=== PATIENT | female | born 1935 | race Caucasian/White ===

== ENCOUNTER 2016-06-29 10:01 | Day surgery (SDC) | payer OTHER ==
[2016-06-29] MEDS ORDERED: NS 500 ML IV 500 ML IV ONE (10:05)
[2016-06-29] MEDS ORDERED: TETRACAINE 0.5% OPHTH 1 DOSE AFFEYE ONE ×6 (10:07→14:06)
[2016-06-29] MEDS ORDERED: VIGAMOX 0.5% OPHTH 1 DOSE AFFEYE ONE ×5 (10:08→14:18)
[2016-06-29] MEDS ORDERED: PROLENSA OPHTH 1 DOSE AFFEYE ONE (10:19)
[2016-06-29] MEDS ORDERED: ALPHAGAN-P OPHTH 1 DOSE AFFEYE ONE (10:20)
[2016-06-29] MEDS ORDERED: AK-DILATE 2.5% OPHTH 1 DOSE OP ONE ×4 (10:21→10:24)
[2016-06-29] MEDS ORDERED: MYDRIACIL OPHTH 1 DOSE AFFEYE ONE ×4 (10:21→10:24)
[2016-06-29] MEDS ORDERED: CYCLOGYL 1% OPHTH 1 DOSE OP ONE ×4 (10:21→10:24)
[2016-06-29] MEDS ORDERED: VERSED ONE (11:05)
[2016-06-29] MEDS ORDERED: AK-DILATE 10% OPHTH 1 DOSE AFFEYE ONE (13:26)
[2016-06-29] MEDS ORDERED: BETADINE OPHTH SOLN 5% EACHEYE ONE (13:38)
[2016-06-29] MEDS ORDERED: ADRENALINE CHL INJ IJ ONE ×2 (13:46→14:06)
[2016-06-29] MEDS ORDERED: DUOVISC IO ONE ×2 (13:46→14:06)
[2016-06-29] MEDS ORDERED: XYLOCAINE-MPF 1% IJ ONE ×2 (13:46→14:06)
[2016-06-29] MEDS ORDERED: BSS OPHTH (PLAIN) 500 ML with VANCOMYCIN HCL 500 MG VIAL 25 MG, ADRENALINE CHL INJ 1 MG IR ONE ×6 (13:47)
[2016-06-29 14:43] VITALS: BP 146/69
== END 2016-06-29 14:43 | disposition home or self-care (01) ==
LOC: SURG1 10:01
PROVIDERS: ATTEND Ophthalmology
PROC: 08J0XZZ Inspection of Right Eye, External Approach (ICD-10-PCS; principal; 2016-06-29 14:15)
PROC: 08DJ3ZZ Extraction of Right Lens, Percutaneous Approach (ICD-10-PCS; principal; 2016-06-29 14:15)
PROC: 08RJ3JZ Replacement of Right Lens with Synthetic Substitute, Percutaneous Approach (ICD-10-PCS; principal; 2016-06-29 14:15)
DX: H25.11 Age-related nuclear cataract, right eye (principal); H25.011 Cortical age-related cataract, right eye; H52.221 Regular astigmatism, right eye
CPT/HCPCS: 99100; A4217; J0170; J2250; J3370

== ENCOUNTER 2016-08-03 07:02 | Day surgery (SDC) | payer OTHER ==
[2016-08-03] MEDS ORDERED: TETRACAINE 0.5% OPHTH 1 DOSE AFFEYE ONE ×6 (07:30→10:53)
[2016-08-03] MEDS ORDERED: VIGAMOX 0.5% OPHTH 1 DOSE AFFEYE ONE ×5 (07:35→11:08)
[2016-08-03] MEDS ORDERED: PROLENSA OPHTH 1 DOSE AFFEYE ONE (07:46)
[2016-08-03] MEDS ORDERED: ALPHAGAN-P OPHTH 1 DOSE AFFEYE ONE (07:47)
[2016-08-03] MEDS ORDERED: AK-DILATE 2.5% OPHTH 1 DOSE OP ONE ×3 (07:48→07:50)
[2016-08-03] MEDS ORDERED: CYCLOGYL 1% OPHTH 1 DOSE OP ONE ×3 (07:48→07:50)
[2016-08-03] MEDS ORDERED: MYDRIACIL OPHTH 1 DOSE AFFEYE ONE ×3 (07:48→07:50)
[2016-08-03] MEDS ORDERED: NS 500 ML IV 500 ML IV ONE (08:00)
[2016-08-03] MEDS ORDERED: FENTANYL INJ 100 mcg ONE (08:46)
[2016-08-03] MEDS ORDERED: VERSED ONE ×2 (08:46→15:05)
[2016-08-03] MEDS ORDERED: ALCAINE or OPHTHETIC AFFEYE ONE (09:50)
[2016-08-03] MEDS ORDERED: ALCAINE or OPHTHETIC 1 DOSE AFFEYE ONE (10:14)
[2016-08-03] MEDS ORDERED: VERSED IVP ONE (10:14)
[2016-08-03] MEDS ORDERED: AK-DILATE 10% OPHTH 1 DOSE AFFEYE ONE (10:18)
[2016-08-03] MEDS ORDERED: BETADINE OPHTH SOLN 5% EACHEYE ONE (10:32)
[2016-08-03] MEDS ORDERED: BSS OPHTH (PLAIN) 500 ML with VANCOMYCIN HCL 500 MG VIAL 25 MG, ADRENALINE CHL INJ 1 MG IR ONE ×6 (10:40)
[2016-08-03] MEDS ORDERED: XYLOCAINE-MPF 1% IJ ONE ×2 (10:40→10:53)
[2016-08-03] MEDS ORDERED: ADRENALINE CHL INJ IJ ONE ×2 (10:40→10:53)
[2016-08-03] MEDS ORDERED: DUOVISC IO ONE ×2 (10:40→10:53)
[2016-08-03 11:49] VITALS: BP 144/84
== END 2016-08-03 11:35 | disposition home or self-care (01) ==
LOC: SURG1 07:02
PROVIDERS: ATTEND Ophthalmology
PROC: 08DJ3ZZ Extraction of Right Lens, Percutaneous Approach (ICD-10-PCS; principal; 2016-08-03 11:15)
PROC: 08RJ3JZ Replacement of Right Lens with Synthetic Substitute, Percutaneous Approach (ICD-10-PCS; principal; 2016-08-03 11:15)
DX: H25.11 Age-related nuclear cataract, right eye (principal); H25.011 Cortical age-related cataract, right eye; H52.221 Regular astigmatism, right eye
CPT/HCPCS: 99100; A4217; J0170; J2250; J3010; J3370

== ENCOUNTER 2017-01-13 14:23 | Emergency (ER) | payer OTHER ==
[2017-01-13 14:30] VITALS: BMI 26.5
[2017-01-13 16:39] VITALS: BP 127/65
[2017-01-13] MEDS ORDERED: MOTRIN TAB 800 MG PO ONE ×2 (16:41→16:42)
[2017-01-13 17:01] LABS: BILIRUBIN,URINE NEGATIVE (NEGATIVE); BLOOD/HEMOGLOBIN,URINE 1+ (NEGATIVE); GLUCOSE, URINE NEGATIVE (NEGATIVE); KETONES,URINE NEGATIVE (NEGATIVE); LEUKOCYTE ESTERASE ,URINE 2+ (NEGATIVE); NITRITES,URINE POSITIVE (NEGATIVE); PROTEIN,URINE 2+ (NEGATIVE); UROBILINOGEN,URINE NORMAL (NORMAL)
[2017-01-13 17:08] LABS: APPEARANCE,URINE CLOUDY (CLEAR); COLOR,URINE YELLOW (YELLOW)
[2017-01-13 17:09] LABS: BACTERIA,URINE 4+ /HPF (NEGATIVE); RENAL EPITHELIAL CELLS,URINE RARE /HPF (NEGATIVE); SQUAMOUS EPITHELIAL CELL,UR FEW /HPF (NEGATIVE)
--- NOTE | 2017-01-13 17:13 | DR.GENAD ---
HPI - PCP Primary Care Physician: NFD - HPI Comment HPI Comment: GETTING WEAK. NO DYSURIA. SLIGHT CONGESTION PRESENT. - Complaint/Symptoms Chief Complaint Doctors Comments: GENERALIZE WEAKNESS, MALAISE, FEVER AND CHILLS TIMES ONE DAY. Chief Complaint:: "Yesterday I started getting some chills, today it got way worse. I have nausea and stomach and back has been hurting. I just feel sick." - Nurses notes reviewed Nurses Notes Review: Yes - Source History Provided: Patient - Mode of Arrival Mode of Arrival: Ambulatory - Timing Onset of Chief Complaint: 01/12/17 Came on: Suddenly - Duration Duration: Since Onset Duration: Days - Severity Severity: Moderate PMH - PMH Past Medical History: Yes Past Medical History: Coronary Artery Disease, Hypertension Past Surgical History: Yes Surgical History: Angioplasty/Stents, Other Past Surgical History Comment: Bypass - Family History History of Family Medical Conditions: Yes Family Medical History: Diabetes Mellitus, Cancer, Coronary Artery Disease, Hypertension - Social History Does patient currently use any type of tobacco product: No Have you used tobacco products in the last 12 months: No Type of Tobacco Use: None Does any household member use tobacco: No Alcohol Use: None Do you use any recreational Drugs:: No Lives With: Family Lives Where: Home - infectious screening In the last 2 months have you had wt loss of >10#?: NO Have you had fever, night sweats or hemotysis?: No Have you traveled outside the country in the last 6 months?: No ROS - Review of Systems Constitutional: Chills, Fever, Malaise, Weakness, Fatigue, Loss of Appetite Eyes: No Symptoms Reported. negative: Eye Pain, Discharge ENTM: Nose Congestion. negative: Ear Pain, Nose Discharge, Throat Pain Respiratoy: Non-Productive Cough, Short of Breath. negative: Wheezing, Hemoptysis Cardiovascular: No Symptoms Reported Gastrointestinal/Abdominal: Abdominal Pain, Nausea Genitourinary: No Symptoms Reported Neurological: No Symptoms Reported Musculoskeletal: Back Pain Integumentary: No Symptoms Reported Hematologic/Lymphatic: No Symptoms Reported Endocrine: No Symptoms Reported All Other Systems: Reviewed and Negative PE - Vital Signs Vitals: Temperature 99.4 F Pulse Rate [Right] 96 Pulse Rate 95 Respiratory Rate 14 Blood Pressure [Left Arm] 127/65 Blood Pressure 139/64 O2 Sat by Pulse Oximetry 99 - General Limitations: No Limitations General Appearance: Alert - Head Head Exam: Normal Inspection - Eyes Eye exam: Normal Appearance - ENT ENT Exam: Normal External Ear Exam External Ear Exam: Normal External Inspection TM/Canal Exam: Bilateral Normal Nose Exam: Normal Nose Exam Mouth Exam: Normal Inspection Throat Exam: Normal Inspection - Chest Chest Inspection: Symmetric Chest Wall Rise - Respiratory Respiratory Exam: Normal Lung Sounds Bilat Respiratory Exam: Bilateral Rhonchi, Lower Rhonchi - Cardiovascular Cardiovascular Exam: Regular Rate, Normal Rhythm, Normal Heart Sounds - Abdominal Exam Abdominal Exam: Normal Bowel Sounds, Soft. negative: Tenderness - Extremities Extremities Exam: Normal Inspection - Back Back Exam: Normal Inspection - Neurologic Neurological Exam: Alert, Oriented X3 - Psychiatric Psychiatric Exam: Normal Affect, Normal Mood - Skin Skin Exam: Normal Color MDM - Differential Diagnosis Differential Diagnosis: PNEUMONIA, UTI, PYELONEPHRITIS Course - Treatment Treatment: SEE ORDERS. - Education/Counseling Education/Counseling: Patient, Education Educated On: Diagnosis, Needs for Follow Up ROR - Labs Reviewed Laboratory Results Reviewed?: Yes Result Diagrams: 01/13/17 17:14 01/13/17 17:14 Laboratory: 01/13/17 17:32 Blood Blood Culture - Final Escherichia Coli 01/13/17 17:14 Blood Blood Culture - Final Escherichia Coli 01/13/17 16:40 Urine,Clean Catch Urine Culture - Final Escherichia Coli WBC 9.2 X10^3/uL (3.6-10.0) 01/13/17 17:14 RBC 3.74 X10^6/uL (3.5-5.4) 01/13/17 17:14 Hgb 11.9 g/dL (12.0-16.0) L 01/13/17 17:14 Hct 34.2 % (36.0-47.0) L 01/13/17 17:14 MCV 91.4 fL (80.0-100.0) 01/13/17 17:14 MCH 31.8 pg (27.0-34.0) 01/13/17 17:14 MCHC 34.8 g/dL (33.0-35.0) 01/13/17 17:14 RDW 12.7 % (11.6-16.5) 01/13/17 17:14 Plt Count 150 X10^3/uL (150.0-450.0) 01/13/17 17:14 Plt Count Comment Adequate (ADEQUATE) 01/13/17 17:14 MPV 8.9 fL (7.4-11.0) 01/13/17 17:14 Neut % 91.8 % (42.0-75.0) H 01/13/17 17:14 Lymph % 3.9 % (21.0-51.0) L 01/13/17 17:14 [place] % 4.1 % (0.0-13.0) 01/13/17 17:14 Eos % 0.0 % (0.9-2.9) L 01/13/17 17:14 Baso % 0.2 % (0.2-1.0) 01/13/17 17:14 Neut # 8.5 x10^3/uL (2.2-4.8) H 01/13/17 17:14 Lymph # 0.4 X10^3/uL (1.3-2.9) L 01/13/17 17:14 [place] # 0.4 x10^3/uL (0.3-0.8) 01/13/17 17:14 Eos # 0.0 x10^3/uL (0.0-0.2) 01/13/17 17:14 Baso # 0.0 X10^3/uL (0.0-0.1) 01/13/17 17:14 Absolute Nucleated RBC 0.0 /100WBC 01/13/17 17:14 Total Counted 100 01/13/17 17:14 Neutrophils % (Manual) 90 % (39-76) H 01/13/17 17:14 Band Neutrophils % 4 % (0-10) 01/13/17 17:14 Lymphocytes % (Manual) 4 % (13-43) L 01/13/17 17:14 Monocytes % (Manual) 2 % (4-9) L 01/13/17 17:14 Plt Morphology Comment Normal (NORMAL) 01/13/17 17:14 RBC Morphology Abnormal (NORMAL) A 01/13/17 17:14 Hypochromasia Slight A 01/13/17 17:14 Sodium 136 mmol/L (136-145) 01/13/17 17:14 Corrected Sodium 137 mmol/L (136-145) 01/13/17 17:14 Potassium 4.2 mmol/L (3.5-5.1) 01/13/17 17:14 Chloride 105 mmol/L (98-107) 01/13/17 17:14 Carbon Dioxide 20.4 mmol/L (21-32) L 01/13/17 17:14 BUN 22 mg/dL (7-18) H 01/13/17 17:14 Creatinine 1.15 mg/dL (0.55-1.02) H 01/13/17 17:14 Est GFR (MDRD) Af Amer 59 (>60) 01/13/17 17:14 Est GFR (MDRD) Non-Af 48 (>60) L 01/13/17 17:14 Glucose 122 mg/dL (65-99) H 01/13/17 17:14 Calcium 8.9 mg/dL (8.5-10.1) 01/13/17 17:14 Corrected Calcium TNP 01/13/17 17:14 Total Bilirubin 0.60 mg/dL (0.2-1.0) 01/13/17 17:14 AST 19 Units/L (15-37) 01/13/17 17:14 ALT 19 Units/L (12-78) 01/13/17 17:14 Alkaline Phosphatase 78 Units/L (46-116) 01/13/17 17:14 Total Protein 7.2 g/dL (6.4-8.2) 01/13/17 17:14 Albumin 3.5 g/dL (3.4-5.0) 01/13/17 17:14 Globulin 3.7 g/dL (2.5-4.5) 01/13/17 17:14 Albumin/Globulin Ratio 0.9 Ratio (1.1-2.1) L 01/13/17 17:14 Specimen Type Clean catch urine 01/13/17 16:40 Urine Color Yellow (YELLOW) 01/13/17 16:40 Urine Appearance Cloudy (CLEAR) 01/13/17 16:40 Urine pH 6.0 (5.0 - 8.0) 01/13/17 16:40 Ur Specific [place] 1.015 (1.000-1.030) 01/13/17 16:40 Urine Protein 2+ (NEGATIVE) 01/13/17 16:40 Urine Glucose (UA) Negative (NEGATIVE) 01/13/17 16:40 Urine Ketones Negative (NEGATIVE) 01/13/17 16:40 Urine Occult Blood 1+ (NEGATIVE) 01/13/17 16:40 Urine Nitrite Positive (NEGATIVE) 01/13/17 16:40 Urine Bilirubin Negative (NEGATIVE) 01/13/17 16:40 Urine Urobilinogen Normal (NORMAL) 01/13/17 16:40 Ur Leukocyte Esterase 2+ (NEGATIVE) 01/13/17 16:40 Urine RBC 2-3 /HPF (NEGATIVE) 01/13/17 16:40 Urine WBC 6-8 /HPF (NEGATIVE) 01/13/17 16:40 Ur Squamous Epith Cells Few /HPF (NEGATIVE) 01/13/17 16:40 Ur Renal Epithelial Cell Rare /HPF (NEGATIVE) 01/13/17 16:40 Urine Bacteria 4+ /HPF (NEGATIVE) 01/13/17 16:40 Ur Culture Indicated? Yes/culture set up 01/13/17 16:40 - XRAY XRAY Interpreted by: Radiologist XRAY Findings: REPORT DISCUSS WITH PATIENT. - Diagnosis Discharge Problem: UTI (urinary tract infection) Qualifiers: Urinary tract infection type: site unspecified Hematuria presence: with hematuria Qualified Code(s): N39.0 - Urinary tract infection, site not specified - Discharge Plan Disposition: 01 HOME, SELF-CARE Condition: Stable Prescriptions: Levofloxacin [LEVAQUIN TAB 500 MG *] 500 mg PO Q24H #7 tab - Follow ups/Referrals Follow ups/Referrals: NFD,None [Primary Care Provider] - 3 days - Instructions Instructions: Urinary Tract Infection, Adult, [id number] Additional Instructions: RETURN TO ED IF WORSE.
[2017-01-13 17:44] LABS: ALANINE AMINOTRANSFERASE 19 Units/L (12-78); ALBUMIN 3.5 g/dL (3.4-5.0); ALKALINE PHOSPHATASE 78 Units/L (46-116); ASPARTATE AMINO TRANSFERASE 19 Units/L (15-37); BLOOD UREA NITROGEN 22 mg/dL (7-18); CALCIUM 8.9 mg/dL (8.5-10.1); CARBON DIOXIDE 20.4 mmol/L (21-32); CHLORIDE 105 mmol/L (98-107); COR NA(FOR HYPERGLY) 137 mmol/L (136-145); CREATININE 1.15 mg/dL (0.55-1.02); SODIUM 136 mmol/L (136-145); TOTAL PROTEIN 7.2 g/dL (6.4-8.2); eGFR BLACK RACES 59 (>60); eGFR NON BLACK RACES 48 (>60)
[2017-01-13 17:47] LABS: BASOPHILS % (AUTO) 0.2 % (0.2-1.0); HEMATOCRIT 34.2 % (36.0-47.0); HEMOGLOBIN 11.9 g/dL (12.0-16.0); LYMPHOCYTES # (AUTO) 0.4 X10^3/uL (1.3-2.9); LYMPHOCYTES % (AUTO) 3.9 % (21.0-51.0); MEAN CORPUSCULAR HEMOGLOBIN 31.8 pg (27.0-34.0); MEAN CORPUSCULAR HGB CONC 34.8 g/dL (33.0-35.0); MEAN CORPUSCULAR VOLUME 91.4 fL (80.0-100.0); MEAN PLATELET VOLUME 8.9 fL (7.4-11.0); MONOCYTES # (AUTO) 0.4 x10^3/uL (0.3-0.8); MONOCYTES % (AUTO) 4.1 % (0.0-13.0); NEUTROPHILS # (AUTO) 8.5 x10^3/uL (2.2-4.8); NEUTROPHILS % (AUTO) 91.8 % (42.0-75.0); PLATELET COUNT 150 X10^3/uL (150.0-450.0); RED BLOOD COUNT 3.74 X10^6/uL (3.5-5.4); RED CELL DISTRIBUTION WIDTH 12.7 % (11.6-16.5); WHITE BLOOD COUNT 9.2 X10^3/uL (3.6-10.0)
[2017-01-13 18:04] LABS: BAND NEUTROPHILS % 4 % (0-10); HYPOCHROMASIA SLIGHT; PLATELET MORPHOLOGY COMMENT NORMAL (NORMAL)
--- NOTE | 2017-01-13 18:06 | RAD ---
Chest PA and lateral Indication: Fever and chills for 1 week. Findings: There is no pneumothorax, effusion or consolidation. Lungs are hyperinflated. Heart size is enlarged with sternotomy change noted. Left shoulder degenerative change with osteochondral body not ed. Impression: Cardiomegaly and COPD without severe edema. Reported By:
[2017-01-13] MEDS ORDERED: ROCEPHIN VIAL 1 GM 1 GM in NS 50 ML IV + SPIKE MINIBAG* 50 ML IV ONE (18:45)
[2017-01-13] MEDS ORDERED: ROCEPHIN VIAL 1 GM ONE (19:02)
[2017-01-13] MEDS ORDERED: LEVAQUIN TAB 500 MG ONE (19:33)
[2017-01-13] MEDS ORDERED: LEVAQUIN TAB 500 MG PO SCH (20:00)
== END 2017-01-13 19:35 | disposition home or self-care (01) ==
LOC: ER 14:34
DX: N39.0 Urinary tract infection, site not specified (principal); B96.29 Other Escherichia coli [E. coli] as the cause of diseases classified elsewhere
CPT/HCPCS: 36415; 71020; 80053; 81001; 85025; 87040; 87077; 87086; 87088; 87186; 96372; 99282; 99283; J0696

== ENCOUNTER 2024-12-06 13:55 | Observation (INO) ==
[2024-12-06] MEDS: ASPIRIN 81 MG CHEWTAB PO ONE (14:26)
[2024-12-06 14:33] LABS: MEAN PLATELET VOLUME 8.5 fL (7.4-11.0); RED CELL DISTRIBUTION WIDTH 14.1 % (11.6-16.5)
--- NOTE | 2024-12-06 14:34 | EKG ---
Test Reason : chest pain Blood Pressure : */* mmHG Vent. Rate : 64 BPM Atrial Rate : * BPM P-R Int : * ms QRS Dur : 88 ms QT Int : 456 ms P-R-T Axes : * 54 113 degrees QTc Int : 470 ms Atrial fibrillation Nonspecific ST and T wave abnormality Prolonged QT Abnormal ECG When compared with ECG of 08-MAR-2023 13:04, No significant change was found Confirmed by Jono Joy MD ([id number]) on 12/06/2024 6:23:49 PM Referred By: Confirmed By: Jono Joy MD
[2024-12-06 14:41] LABS: INR 1.21 (0.8-1.3)
[2024-12-06 14:49] LABS: CREATININE 0.94 mg/dL (0.55-1.02); eGFR NON BLACK RACES 60 (>60)
--- NOTE | 2024-12-06 16:26 | DR.CP ---
HPI Time Seen Time Seen by Provider: 12/06/24 16:25 PCP Primary Care Physician: Cayden Complaint Chief Complaint Doctor Comments: Patient with complaint of chest pain and upper back pain that started about an hour ago. Patient states she was laying on the couch when it started. Denies shortness of breath or dizziness. Patient's family member states that she has been exerting herself more than usual. Chief Complaint:: Patient c/o left sided chest pain and upper back pain x1 hour. states that she was lying on the couch when it started. denies shortness of breath or dizziness at this time. COVID-19 Coronavirus risk:travel/contact w/high risk person: No Has patient experienced Coronavirus symptoms: No Source History Provided: Patient Mode of Arrival Mode of Arrival: Wheelchair Timing Onset of Chief Complaint: 12/06/24 PMH PMH Past Medical History: Yes Past Medical History: Arthritis, Coronary Artery Disease, Hypertension and Hypothyroidism Past Surgical History: Yes Surgical History: Angioplasty/Stents, CABG/Valve Surgery and Other Family History History of Family Medical Conditions: Yes Family Medical History: Diabetes Mellitus, Cancer, Coronary Artery Disease and Hypertension Social History Type of Tobacco Use: None Alcohol Use: None Do you use any recreational Drugs:: No Lives With: Alone Lives Where: Home Travel Risk Coronavirus risk:travel/contact w/high risk person: No Has patient experienced Coronavirus symptoms: No Infectious screening Have you traveled outside the country in the last 6 months?: No Isolation: Standard ROS Review of Systems Constitutional: No Symptoms Reported Eyes: No Symptoms Reported ENTM: No Symptoms Reported Respiratoy: No Symptoms Reported; negative Short of Breath or Wheezing Cardiovascular: See HPI and Chest Pain; negative Edema, Palpitations or Syncope Gastrointestinal/Abdominal: No Symptoms Reported Genitourinary: Frequency; negative Discharge or Dysuria Neurological: No Symptoms Reported Musculoskeletal: No Symptoms Reported Integumentary: No Symptoms Reported Hematologic/Lymphatic: No Symptoms Reported Endocrine: No Symptoms Reported Psychiatric: No Symptoms Reported All Other Systems: Reviewed and Negative PE Vitals Vitals: Vital Signs Temperature 97.6 F Pulse Rate 68 Pulse Rate 66 Pulse Rate 62 Pulse Rate 65 Pulse Rate 62 Pulse Rate 53 Pulse Rate 53 Pulse Rate 55 Pulse Rate 56 Pulse Rate 54 Pulse Rate 53 Pulse Rate 63 Pulse Rate 66 Respiratory Rate 20 Respiratory Rate 18 Respiratory Rate 18 Respiratory Rate 21 Respiratory Rate 24 Respiratory Rate 21 Respiratory Rate 18 Respiratory Rate 16 Respiratory Rate 16 Respiratory Rate 17 Respiratory Rate 18 Blood Pressure 120/66 Blood Pressure 120/65 Blood Pressure 112/71 Blood Pressure 120/62 Blood Pressure 118/59 Blood Pressure 118/59 Blood Pressure 118/59 Blood Pressure 124/58 Blood Pressure 124/58 Blood Pressure 124/58 Blood Pressure 124/58 Blood Pressure 124/58 Blood Pressure 109/58 O2 Sat by Pulse Oximetry 100 O2 Sat by Pulse Oximetry 100 O2 Sat by Pulse Oximetry 100 O2 Sat by Pulse Oximetry 100 O2 Sat by Pulse Oximetry 100 O2 Sat by Pulse Oximetry 100 O2 Sat by Pulse Oximetry 100 O2 Sat by Pulse Oximetry 100 O2 Sat by Pulse Oximetry 100 O2 Sat by Pulse Oximetry 100 O2 Sat by Pulse Oximetry 99 O2 Sat by Pulse Oximetry 96 General Limitations: No Limitations General Appearance: Alert and In No Apparent Distress Head Head Exam: Normal Inspection Eyes Eye exam: Normal Appearance ENT ENT Exam: Normal Exam Chest Chest Inspection: Normal Inspection Respiratory Respiratory Exam: Normal Lung Sounds Bilat Cardiovascular Cardiovascular Exam: Regular Rate and Irregular Rhythm Pulse: Normal Edema: Normal Abdominal Exam Abdominal Exam: Normal Inspection, Normal Bowel Sounds and Soft Extremities Extremities Exam: Normal Inspection Back Back Exam: Normal Inspection Neurologic Neurological Exam: Alert and Oriented X3 Psychiatric Psychiatric Exam: Normal Affect and Normal Mood Skin Skin Exam: Warm, Dry, Intact and Normal Color COURSE Treatment Treatment: Discussed results of workup with patient and family. Patient with UTI. Patient with extensive cardiac history and elevated heart score. Pain has improved. Consultation Called: 18:08 Consultation Comments: Discussed case with Dr. Sharpe, she is agreeable to admission. ROR Labs Reviewed Laboratory Results Reviewed?: Yes 12/06/24 14:25 12/06/24 14: Laboratory: WBC 6.6 X10^3/uL (3.6-10.0) 12/06/24 14: RBC 4.21 X10^6/uL (3.5-5.4) 12/06/24 14:25 Hgb 13.3 g/dL (12.0-16.0) 12/06/24 14:25 Hct 39.4 % (36.0-47.0) 12/06/24 14: MCV 93.6 fL (80.0-100.0) 12/06/24 14: MCH 31.6 pg (27.0-34.0) 12/06/24 14:25 MCHC 33.7 g/dL (33.0-35.0) 12/06/24 14:25 RDW 14.1 % (11.6-16.5) 12/06/24 14:25 Plt Count 151 X10^3/uL (150.0-450.0) 12/06/24 14:25 MPV 8.5 fL (7.4-11.0) 12/06/24 14:25 Neut % (Auto) 58.6 % (42.0-75.0) 12/06/24 14:25 Lymph % (Auto) 30.7 % (21.0-51.0) 12/06/24 14:25 [place] % (Auto) 9.5 % (0.0-13.0) 12/06/24 14:25 Eos % (Auto) 0.7 % (0.9-2.9) L 12/06/24 14: Baso % (Auto) 0.5 % (0.2-1.0) 12/06/24 14:25 Neut # (Auto) 3.9 x10^3/uL (2.2-4.8) 12/06/24 14:25 Lymph # (Auto) 2.0 X10^3/uL (1.3-2.9) 12/06/24 14:25 [place] # (Auto) 0.6 x10^3/uL (0.3-0.8) 12/06/24 14:25 Eos # (Auto) 0.0 x10^3/uL (0.0-0.2) 12/06/24 14:25 Baso # (Auto) 0.0 X10^3/uL (0.0-0.1) 12/06/24 14:25 Absolute Nucleated RBC 0.0 /100WBC 12/06/24 14:25 PT 15.5 SECONDS (11.8-14.3) 12/06/24 14:25 INR Target Range - 12/06/24 14:25 INR 1.21 (0.8-1.3) 12/06/24 14:25 APTT 34.3 SECONDS (22.9-36.5) 12/06/24 14:25 PTT Comment - 12/06/24 14:25 D-Dimer 0.29 ug/ml (0.0-0.57) 12/06/24 14:25 Sodium 140 mmol/L (136-145) 12/06/24 14:25 Corrected Sodium TNP 12/06/24 14:25 Potassium 4.7 mmol/L (3.5-5.1) 12/06/24 14:25 Chloride 106 mmol/L (98-107) 12/06/24 14:25 Carbon Dioxide 28.1 mmol/L (21-32) 12/06/24 14:25 BUN 29 mg/dL (7-18) H 12/06/24 14:25 Creatinine 0.94 mg/dL (0.55-1.02) 12/06/24 14:25 Est GFR (MDRD) Af Amer > 60 (>60) 12/06/24 14:25 Est GFR (MDRD) Non-Af 60 (>60) 12/06/24 14:25 Glucose 95 mg/dL (65-99) 12/06/24 14:25 Calcium 8.8 mg/dL (8.5-10.1) 12/06/24 14:25 Corrected Calcium TNP 12/06/24 14:25 Total Bilirubin 1.20 mg/dL (0.2-1.0) H 12/06/24 14:25 AST 38 Units/L (15-37) H 12/06/24 14:25 ALT 35 Units/L (12-78) 12/06/24 14:25 Alkaline Phosphatase 87 Units/L (46-116) 12/06/24 14:25 Creatine Kinase 105 Units/L (26-192) 12/06/24 14:25 Troponin I High Sens 21.3 ng/L (4.0-60.0) 12/06/24 16:14 B-Natriuretic Peptide 588 pg/mL (0-79) H 12/06/24 14:25 Total Protein 7.4 g/dL (6.4-8.2) 12/06/24 14:25 Albumin 3.6 g/dL (3.4-5.0) 12/06/24 14:25 Globulin 3.8 g/dL (2.5-4.5) 12/06/24 14:25 Albumin/Globulin Ratio 0.9 Ratio (1.1-2.1) L 12/06/24 14:25 Specimen Type Clean catch urine 12/06/24 17:03 Urine Color Yellow (YELLOW) 12/06/24 17:03 Urine Appearance Slightly hazy (CLEAR) 12/06/24 17:03 Urine pH 7.0 (5.0 - 8.0) 12/06/24 17:03 Ur Specific [place] 1.010 (1.000-1.030) 12/06/24 17:03 Urine Protein Negative (NEGATIVE) 12/06/24 17:03 Urine Glucose (UA) Negative (NEGATIVE) 12/06/24 17:03 Urine Ketones Negative (NEGATIVE) 12/06/24 17:03 Urine Blood Negative (NEGATIVE) 12/06/24 17:03 Urine Nitrite Positive (NEGATIVE) 12/06/24 17:03 Urine Bilirubin Negative (NEGATIVE) 12/06/24 17:03 Urine Urobilinogen Normal (NORMAL) 12/06/24 17:03 Ur Leukocyte Esterase 1+ (NEGATIVE) 12/06/24 17:03 Urine RBC None seen /HPF (0-3) 12/06/24 17:03 Urine WBC 3-5 /HPF (0-5) 12/06/24 17:03 Ur Squamous Epith Cells Rare /HPF (NEGATIVE) 12/06/24 17:03 Urine Bacteria 2+ /HPF (NEGATIVE) 12/06/24 17:03 Ur Culture Indicated? Yes/culture set up 12/06/24 17:03 XRAY XRAY Interpreted by: Self (Chest x-ray reviewed interpreted by myself. No acute cardiopulmonary pathology noted. Minimal fluid noted) EKG Rate: 64 Rhythm: Afib ST: Nonsp Opioid Opioid Risk Tool Age ([place] box if 16-45): No History of Preadolescent Sexual Abuse: No Total: 0 Total Score Risk Category: Low Risk Copyright: Adis SWARTZ predicting aberrant behaviors Discharge Plan Diagnosis Discharge Problem: Coronary artery disease, Chest pain UTI (urinary tract infection) Qualifiers: Urinary tract infection type: site unspecified Hematuria presence: with hematuria Qualified Code(s): N39.0 - Urinary tract infection, site not specified Discharge Plan Patient Disposition: 09 ADMITTED INPATIENT Condition: Stable Prescriptions: No Action isosorbide dinitrate 20 mg tablet 20 mg PO DAILY furosemide 20 mg tablet 20 mg PO QDAY atorvastatin 80 mg Tablet 80 mg PO QHS levothyroxine 25 mcg tablet 50 mcg PO DAILY amlodipine 10 mg tablet 10 mg PO DAILY metoprolol tartrate 50 mg tablet 50 mg PO BID lisinopril 5 mg Tablet 5 mg PO DAILY Eliquis 2.5 mg Tablet 2.5 mg PO BID Health Concerns: Post Hospitalization: new medications and changes needed to prevent readmission or further decline. Pt educated and given instructions on all concerns. Plan of Treatment: Continue with present treatment and follow up plan. Pt is to keep follow up appointment as instructed and take medications as ordered. Orders to Discharge Patient Discharge Orders: Transfer (Routine); Ordered 12/06/24 Ordered By: Sanjeev Hart Follow ups/Referrals Follow ups/Referrals: NFD,None [Primary Care Provider] - 3 days Instructions Stand Alone Forms: Find Help Web Site, Post Hospital Follow Up Care Print Language: BELARUSIAN
[2024-12-06 17:39] LABS: BLOOD/HEMOGLOBIN,URINE NEGATIVE (NEGATIVE); LEUKOCYTE ESTERASE ,URINE 1+ (NEGATIVE); NITRITES,URINE POSITIVE (NEGATIVE)
[2024-12-06 17:40] LABS: APPEARANCE,URINE SLIGHTLY HAZY (CLEAR)
[2024-12-06 17:45] LABS: SQUAMOUS EPITHELIAL CELL,UR RARE /HPF (NEGATIVE)
[2024-12-06] MEDS: ROCEPHIN VIAL 1 GRAM IV ONE (18:13)
[2024-12-06] MEDS: ROCEPHIN VIAL 1 GRAM 1 G in NS 100 ML IV 100 ML IV SCH (18:45)
--- NOTE | 2024-12-06 20:04 | RAD ---
EXAM: CHEST, 1 VIEW HISTORY: chest pain; COMPARISON: September 10, 2024 TECHNIQUE: Chest radiographic imaging, AP portable projection, 1 image FINDINGS: Mild cardiomegaly. Status post median sternotomy/CABG. Mild diffuse increased interstitial markings; likely senescent changes. No focal airspace disease. No pleural effusion. No pneumothorax. No acute osseous abnormality. IMPRESSION: No imaging findings of acute cardiopulmonary disease or significant changes. THIS IS AN ELECTRONICALLY VERIFIED FINAL REPORT 12/06/2024 8:00 PM - Electronically signed by Blaze Jung MD
[2024-12-06 20:07] VITALS: BMI 22.3
--- NOTE | 2024-12-06 20:15 | EKG ---
Test Reason : Chest pain Blood Pressure : */* mmHG Vent. Rate : 78 BPM Atrial Rate : * BPM P-R Int : * ms QRS Dur : 86 ms QT Int : 434 ms P-R-T Axes : * 48 154 degrees QTc Int : 494 ms Atrial fibrillation Low voltage QRS Nonspecific T wave abnormality Prolonged QT Abnormal ECG When compared with ECG of 06-DEC-2024 14:15, Nonspecific T wave abnormality now evident in Inferior leads Confirmed by Jono Joy MD ([id number]) on 12/07/2024 6:15:51 AM Referred By: Confirmed By: Jono Joy MD
[2024-12-06] MEDS: NS 1,000 ML IV 1,000 ML IV SCH (20:31)
[2024-12-06] MEDS: LOPRESSOR TAB 50 MG PO SCH (20:31)
[2024-12-06] MEDS: ELIQUIS PO SCH (20:31)
[2024-12-06] MEDS: LIPITOR TAB 80 MG PO SCH (20:31)
[2024-12-06] MEDS ORDERED: PATIENT'S HOME MEDICATION (Apixaban [Eliquis] 2.5 mg Tablet) PO SCH (21:00)
--- NOTE | 2024-12-07 00:29 | EKG ---
Test Reason : Chest pain Blood Pressure : */* mmHG Vent. Rate : 51 BPM Atrial Rate : * BPM P-R Int : * ms QRS Dur : 90 ms QT Int : 490 ms P-R-T Axes : * 60 107 degrees QTc Int : 451 ms Atrial fibrillation with slow ventricular response Nonspecific T wave abnormality Abnormal ECG When compared with ECG of 06-DEC-2024 20:01, (Unconfirmed) Vent. rate has decreased BY 27 BPM Nonspecific T wave abnormality no longer evident in Inferior leads Nonspecific T wave abnormality, worse in Lateral leads Confirmed by Jono Joy MD ([id number]) on 12/07/2024 6:15:17 AM Referred By: Confirmed By: Jono Joy MD
--- NOTE | 2024-12-07 05:56 | EKG ---
Test Reason : Chest pain Blood Pressure : */* mmHG Vent. Rate : 69 BPM Atrial Rate : * BPM P-R Int : * ms QRS Dur : 86 ms QT Int : 476 ms P-R-T Axes : * 45 116 degrees QTc Int : 510 ms Atrial fibrillation Abnormal QRS-T angle, consider primary T wave abnormality Prolonged QT Abnormal ECG When compared with ECG of 07-DEC-2024 00:27, (Unconfirmed) Nonspecific T wave abnormality, improved in Lateral leads QT has lengthened Confirmed by Jono Joy MD ([id number]) on 12/07/2024 6:15:02 AM Referred By: Confirmed By: Jono Joy MD
[2024-12-07 06:43] LABS: MEAN PLATELET VOLUME 9.6 fL (7.4-11.0); RED CELL DISTRIBUTION WIDTH 13.9 % (11.6-16.5)
[2024-12-07 07:06] LABS: CHOL/HDL RATIO 2.6 (0.0-5.0); COR CA(FOR HYPOALB) 9.1 mg/dL (8.5-10.1); CREATININE 0.69 mg/dL (0.55-1.02); eGFR NON BLACK RACES > 60 (>60)
--- NOTE | 2024-12-07 07:51 | RAD ---
EXAM: CHEST, 1 VIEW HISTORY: Chest pain, CHF; COMPARISON: No relevant prior studies were available for comparison at the time of interpretation. TECHNIQUE: CHEST, 1 VIEW FINDINGS: Chest: Lines and tubes: None Mediastinum: Median sternotomy wires are present. The cardiac shadow is enlarged. Pulmonary vessels: Pulmonary vasculature is prominent. Lung rene: Interstitial markings and hyperinflation of the lungs with diaphragmatic flattening. Pleura: No effusion. No pneumothorax. Bones and soft tissues: No acute osseous or soft tissue abnormality. Severe left glenohumeral degenerative change IMPRESSION: 1. Findings suggest heart failure with mildly increased volume status superimposed on COPD THIS IS AN ELECTRONICALLY VERIFIED FINAL REPORT 12/07/2024 7:48 AM - Electronically signed by Robin Machuca MD
[2024-12-07] MEDS ORDERED: SYNTHROID 25 mcg TAB PO SCH (09:00)
[2024-12-07] MEDS: ISOSORBIDE DINITRATE PO SCH (10:15)
[2024-12-07] MEDS: ZESTRIL TAB 5 MG PO SCH (10:15)
[2024-12-07] MEDS: NORVASC TAB 10 MG PO SCH (10:16)
[2024-12-07] MEDS: LASIX PO SCH (10:16)
--- NOTE | 2024-12-07 17:41 | DR.H&P ---
H&P History & Physical for Day of: H&P Date: 12/07/24 Chief Complaint Chief Complaint: chest pain History of Present Illness History of Present Illness: Patient is a 89-year-old female with a past medical history of hypertension, hypothyroidism, CAD, arthritis, presenting with chest pain that occurred while she was sitting on the couch. She denies any shortness of breath, diaphoresis, or radiation of pain. She also denies dysuria, fevers, chills. In the ED she was noted to have acute cystitis. Labs/imaging: WBC 5.7, hemoglobin 13.4, platelets 142, sodium 143, potassium 4.4, creatinine 0.69, glucose 87, D-dimer 0.29, UA consistent with infection, chest x-ray reveals CHF and COPD findings. Urine culture pending. Troponin negative x 3. BNP 588. Patient was admitted for acute cystitis. Due to her history of CHF we will leave her IV fluids to KVO. She was started and is continuing to receive IV antibiotics Rocephin. Will follow-up on culture results. Restart home medications. Otherwise continue current treatment plan. Continue closely monitor and follow-up labs in the morning. Past Medical History Past Medical History: Arthritis, Coronary Artery Disease, Hypertension and Hypothyroidism Past Surgical History Surgical History: Angioplasty/Stents, CABG/Valve Surgery and Other Family History Family Medical History: Diabetes Mellitus, Cancer, Coronary Artery Disease and Hypertension Social History Does patient currently use any type of tobacco product: No Type of Tobacco Use: None Does any household member use tobacco: No Alcohol Use: None Drug Use: None Medications Home Medications: Home Medications Medication Instructions Recorded Confirmed Type amlodipine 10 mg tablet 10 mg PO DAILY 11/27/2011/17 History apixaban 2.5 mg tablet (Eliquis) 2.5 mg PO BID 1 12/06/24 History atorvastatin 80 mg tablet 80 mg PO QHS 11/27/20 History levothyroxine 25 mcg tablet 50 mcg PO DAILY 11/27/20 0 12/06/24 History lisinopril 5 mg tablet 5 mg PO DAILY 11/27/2012/06 History metoprolol tartrate 50 mg tablet 50 mg PO BID 11/27/20 12/06/24 History furosemide 20 mg tablet 20 mg PO QDAY 12/06/2412/06 History isosorbide dinitrate 20 mg tablet 20 mg PO DAILY 12/0612/06/24 History Allergies Allergies Allergy/AdvReac Type Severity Reaction Status Date / Time hydrocodone AdvReac Verified 12/06/24 14:05 Labs 12/07/24 05:25 12/07/24 05:25 Labs: 12/06/24 17:03 Urine,Clean Catch Urine Culture - Preliminary Laboratory WBC 5.7 X10^3/uL (3.6-10.0) 12/07/24 05:25 RBC 4.22 X10^6/uL (3.5-5.4) 12/07/24 05:25 Hgb 13.4 g/dL (12.0-16.0) 12/07/24 05:25 Hct 39.5 % (36.0-47.0) 12/07/24 05:25 MCV 93.6 fL (80.0-100.0) 12/07/24 05:25 MCH 31.8 pg (27.0-34.0) 12/07/24 05:25 MCHC 33.9 g/dL (33.0-35.0) 12/07/24 05:25 RDW 13.9 % (11.6-16.5) 12/07/24 05:25 Plt Count 142 X10^3/uL (150.0-450.0) L 12/07/24 05:25 MPV 9.6 fL (7.4-11.0) 12/07/24 05:25 Neut % (Auto) 52.7 % (42.0-75.0) 12/07/24 05:25 Lymph % (Auto) 37.3 % (21.0-51.0) 12/07/24 05:25 [place] % (Auto) 8.4 % (0.0-13.0) 12/07/24 05:25 Eos % (Auto) 1.1 % (0.9-2.9) 12/07/24 05:25 Baso % (Auto) 0.5 % (0.2-1.0) 12/07/24 05:25 Neut # (Auto) 3.0 x10^3/uL (2.2-4.8) 12/07/24 05:25 Lymph # (Auto) 2.1 X10^3/uL (1.3-2.9) 12/07/24 05:25 [place] # (Auto) 0.5 x10^3/uL (0.3-0.8) 12/07/24 05:25 Eos # (Auto) 0.1 x10^3/uL (0.0-0.2) 12/07/24 05:25 Baso # (Auto) 0.0 X10^3/uL (0.0-0.1) 12/07/24 05:25 Absolute Nucleated RBC 0.1 /100WBC 12/07/24 05:25 PT 15.5 SECONDS (11.8-14.3) 12/06/24 14:25 INR Target Range - 12/06/24 14:25 INR 1.21 (0.8-1.3) 12/06/24 14:25 APTT 34.3 SECONDS (22.9-36.5) 12/06/24 14:25 PTT Comment - 12/06/24 14:25 D-Dimer 0.29 ug/ml (0.0-0.57) 12/06/24 14:25 Sodium 143 mmol/L (136-145) 12/07/24 05:25 Corrected Sodium TNP 12/07/24 05:25 Potassium 4.4 mmol/L (3.5-5.1) 12/07/24 05:25 Chloride 109 mmol/L (98-107) H 12/07/24 05:25 Carbon Dioxide 28.1 mmol/L (21-32) 12/07/24 05:25 BUN 23 mg/dL (7-18) H 12/07/24 05:25 Creatinine 0.69 mg/dL (0.55-1.02) 12/07/24 05:25 Est GFR (MDRD) Af Amer > 60 (>60) 12/07/24 05:25 Est GFR (MDRD) Non-Af > 60 (>60) 12/07/24 05:25 Glucose 87 mg/dL (65-99) 12/07/24 05:25 Calcium 8.5 mg/dL (8.5-10.1) 12/07/24 05:25 Corrected Calcium 9.1 mg/dL (8.5-10.1) 12/07/24 05:25 Magnesium 2.1 mg/dL (2.0-2.9) 12/07/24 05:25 Total Bilirubin 0.90 mg/dL (0.2-1.0) 12/07/24 05:25 AST 40 Units/L (15-37) H 12/07/24 05:25 ALT 37 Units/L (12-78) 12/07/24 05:25 Alkaline Phosphatase 98 Units/L (46-116) 12/07/24 05:25 Creatine Kinase 153 Units/L (26-192) 12/07/24 05:25 Troponin I High Sens 23.8 ng/L (4.0-60.0) 12/07/24 05:25 B-Natriuretic Peptide 588 pg/mL (0-79) H 12/06/24 14:25 Total Protein 7.1 g/dL (6.4-8.2) 12/07/24 05:25 Albumin 3.3 g/dL (3.4-5.0) L 12/07/24 05:25 Globulin 3.8 g/dL (2.5-4.5) 12/07/24 05:25 Albumin/Globulin Ratio 0.9 Ratio (1.1-2.1) L 12/07/24 05:25 Triglycerides 83 mg/dL (0-150) 12/07/24 05:25 Cholesterol 128 mg/dL (0-200) 12/07/24 05:25 LDL Cholesterol, Calc 62 mg/dL (0-100) 12/07/24 05:25 HDL Cholesterol 49 mg/dL (40-60) 12/07/24 05:25 Cholesterol/HDL Ratio 2.6 (0.0-5.0) 12/07/24 05:25 Specimen Type Clean catch urine 12/06/24 17:03 Urine Color Yellow (YELLOW) 12/06/24 17:03 Urine Appearance Slightly hazy (CLEAR) 12/06/24 17:03 Urine pH 7.0 (5.0 - 8.0) 12/06/24 17:03 Ur Specific [place] 1.010 (1.000-1.030) 12/06/24 17:03 Urine Protein Negative (NEGATIVE) 12/06/24 17:03 Urine Glucose (UA) Negative (NEGATIVE) 12/06/24 17:03 Urine Ketones Negative (NEGATIVE) 12/06/24 17:03 Urine Blood Negative (NEGATIVE) 12/06/24 17:03 Urine Nitrite Positive (NEGATIVE) 12/06/24 17:03 Urine Bilirubin Negative (NEGATIVE) 12/06/24 17:03 Urine Urobilinogen Normal (NORMAL) 12/06/24 17:03 Ur Leukocyte Esterase 1+ (NEGATIVE) 12/06/24 17:03 Urine RBC None seen /HPF (0-3) 12/06/24 17:03 Urine WBC 3-5 /HPF (0-5) 12/06/24 17:03 Ur Squamous Epith Cells Rare /HPF (NEGATIVE) 12/06/24 17:03 Urine Bacteria 2+ /HPF (NEGATIVE) 12/06/24 17:03 Ur Culture Indicated? Yes/culture set up 12/06/24 17:03 Review of Systems Constitutional: No Symptoms Reported Eyes: No Symptoms Reported ENT: No Symptoms Reported Respiratory: No Symptoms Reported Cardiovascular: Chest Pain Gastrointestinal: No Symptoms Reported Genitourinary: No Symptoms Reported Musculoskeletal: No Symptoms Reported Skin: No Symptoms Reported Neurological: No Symptoms Reported Physical Exam Vital Signs: Vital Signs Temperature 97.5 F Temperature 97.5 F Pulse Rate [Brachial] 58 Pulse Rate [Brachial] 63 Respiratory Rate 19 Respiratory Rate 19 Blood Pressure [Right Arm] 107/59 Blood Pressure [Right Arm] 100/63 O2 Sat by Pulse Oximetry 97 O2 Sat by Pulse Oximetry 97 Oriented: Normal Eyes: Normal Ear: Normal Nose: Normal Throat: Normal Respiratory: Clear Throughout Cardiovascular: Normal : Normal Auscultation: Bowel Sounds: Normal Palpation: Normal Tenderness: Normal Skin: Normal Musculoskeletal: Normal Psychiatric: Normal Mood Description: Calm and Appropriate Affect: Normal Speech Pattern: Clear and Appropriate Assessment/Plan (1) Acute cystitis: Qualifiers: Hematuria presence: without hematuria Qualified Code(s): N30.00 - Acute cystitis without hematuria Status: Acute Plan: IV antibiotics Follow up cultures (2) Chest pain: Qualifiers: Chest pain type: unspecified Qualified Code(s): R07.9 - Chest pain, unspecified Status: Acute Plan: troponin negative, ruled out (3) Hypertension: Qualifiers: Hypertension type: primary hypertension Qualified Code(s): I10 - Essential (primary) hypertension Status: Acute (4) Hypothyroidism: Qualifiers: Hypothyroidism type: unspecified Qualified Code(s): E03.9 - Hypothyroidism, unspecified Status: Acute (5) Hyperlipidemia: Qualifiers: Hyperlipidemia type: unspecified Qualified Code(s): E78.5 - Hyperlipidemia, unspecified Status: Acute Review H&P Reviewed: Yes Patient was examined?: Yes
[2024-12-07] MEDS: PHARMACY CONSULT XX SCH (19:52)
[2024-12-08 00:14] VITALS: RESP 18
[2024-12-08 07:31] LABS: MEAN PLATELET VOLUME 8.9 fL (7.4-11.0); RED CELL DISTRIBUTION WIDTH 13.9 % (11.6-16.5)
[2024-12-08 07:40] LABS: COR NA(FOR HYPERGLY) 141 mmol/L (136-145); CREATININE 0.65 mg/dL (0.55-1.02); eGFR NON BLACK RACES > 60 (>60)
[2024-12-08] MEDS ORDERED: CONSULT PHARMACY - POTASSIUM & MAGNESIUM XX SCH (09:00)
[2024-12-08] MEDS: K-DUR TAB 20 MEQ PO SCH (11:05)
[2024-12-08] MEDS: MAG-OX TAB PO SCH (11:06)
[2024-12-08] MEDS: MILK OF MAGNESIA PO SCH (11:08)
[2024-12-08 12:54] VITALS: BP 135/70; PULSE 72; TEMP 98; O2SAT 97
[2024-12-08] MEDS ORDERED: COLACE CAP 100 MG PO SCH (21:00)
== END 2024-12-08 13:30 | disposition home or self-care (01) ==
LOC: ER 13:55 → MED/SURG 18:15 → INTOOBSV 18:15 → MED/SURG 19:29
PROVIDERS: ADMIT Internal Medicine; ATTEND Internal Medicine
DX: E03.8 Other specified hypothyroidism; B96.29 Other Escherichia coli [E. coli] as the cause of diseases classified elsewhere; R07.89 Other chest pain; E78.5 Hyperlipidemia, unspecified; E80.6 Other disorders of bilirubin metabolism; I48.91 Unspecified atrial fibrillation; I10 Essential (primary) hypertension; I25.810 Atherosclerosis of coronary artery bypass graft(s) without angina pectoris; Z16.29 Resistance to other single specified antibiotic; Z79.01 Long term (current) use of anticoagulants; Z79.899 Other long term (current) drug therapy; N39.0 Urinary tract infection, site not specified; Z95.2 Presence of prosthetic heart valve; Z16.23 Resistance to quinolones and fluoroquinolones; R94.31 Abnormal electrocardiogram [ECG] [EKG]